=== PATIENT | male | born 1995 | race Caucasian/White ===

== ENCOUNTER → 2023-08-18 | Outpatient (CLI) | payer OTHER ==
--- NOTE | 2023-08-18 19:34 | USB ---
Reason for Exam: Clinical finding. Technique: Method: Targeted. Findings: The lateral section of the breast of the right breast, the axilla of the right breast and the retroareolar of the right breast were scanned. No solid or cystic masses are identified. There is some dense parenchymal tissue within the right breast. Overall Assessment: Probably benign, BI-RAD 3 Management: Diagnostic Mammogram of the right breast in 6 months. Diagnostic Breast Ultrasound of the right breast in 6 months. A clinical breast exam by your physician is recommended on an annual basis and results should be correlated with mammographic findings. This exam should not preclude additional follow-up of suspicious palpable abnormalities. Results were given to the patient verbally at the time of exam. Electronically signed and approved by: Sebas Bird D.O. Radiologis
--- NOTE | 2023-08-18 19:35 | MM ---
Reason for Exam: Clinical finding. Last mammogram was performed 5 year(s) and 10 month(s) ago. Indicated Problems: Lump or thickening of the right side for 6 Year(s). Prior Study Comparison: 09/25/2017 Bilateral Diagnostic Mammogram, [facility]. 09/25/2017 Right Diagnostic Ultrasound, [facility]. Tissue Density: The breast tissue is heterogeneously dense. This may lower the sensitivity of mammography. Findings: Analyzed By CAD. Pattern is asymmetric with greater parenchymal tissue density on the right compared to the left. No discrete mammographic abnormality evident. Pattern is not typical for gynecomastia. No suspicious groups of microcalcifications, spiculated or lobular masses, architectural distortion or other secondary signs of malignancy are mammographically apparent. Overall Assessment: Incomplete: need additional imaging evaluation, BI-RAD 0 Management: Diagnostic Breast Ultrasound of the right breast. A negative mammogram report should not preclude additional follow up of suspicious palpable abnormalities. Patient should continue monthly self breast exam. A clinical breast exam by your physician is recommended on an annual basis and results should be correlated with mammographic findings. Electronically signed and approved by: Sebas Bird D.O. Radiologis
== END | disposition home or self-care (01) ==
LOC: RADMAMWWP 08:47
PROVIDERS: ATTEND Family Medicine
DX: N63.10 Unspecified lump in the right breast, unspecified quadrant (principal)
CPT/HCPCS: 77062; 77066

== ENCOUNTER → 2023-09-24 | Outpatient (CLI) | payer OTHER ==
[2023-09-24 09:28] VITALS: BP 139/85; PULSE 94; RESP 17; TEMP 98.7
--- NOTE | 2023-09-24 10:09 | P.GSHP ---
History of Present Illness H&P Date: 09/24/23 Chief Complaint: right breast enlargement Kayden is a 28 year old white male seen in consultation for Dr. Pascal regarding enlargement of the right breast. He had right breast ultrasound on 08-18-23 which did not show any discrete lesions of concern. A bilateral mammogr am on the same date revealed greater breast parenchyma on the right than the left but the pattern was not typical for gynecomastia. He had had a bilateral mammogram in 2018 which showed findings most likely consistent with gynecomastia. Since 2018 the area of concern in the right breast has increased in size and is painful when he gets bumped, at times there is a constant aching sensation in the breast. He has some mild enlargement of the left breast but is not complaining of pain in the left breast. He is not complaining of any testicular lumps masses or nodules of concern. Caffeine: 1 liter of Mountain Dew/daily nicotine: Patient does not smoke and is not exposed to secondhand smoke Chocolate: occasional drugs: none Family History: maternal grandmother: Fibrocystic breast, no cancer paternal grandmother: ? breast cancer Surgical history: umbilical and left grain hernia repair Medical History: none "water" on the brain related to an allergic reaction to tetanus shot Social History: Nicotine: Negative Alcohol: Rare Drugs: Negative - Constitutional Constitutional: Denies chills, Denies fever - EENT Eyes: denies blurred vision, denies pain Ears, nose, mouth and throat: Denies headache, Denies sore throat - Breasts Breasts: bilateral: as per HPI - Cardiovascular Cardiovascular: Denies chest pain, Denies shortness of breath - Respiratory Respiratory: Denies cough, Denies 7 - Gastrointestinal Gastrointestinal: Denies abdominal pain, Denies diarrhea, Denies nausea, Denies vomiting - Genitourinary (Male) Genitourinary: Denies dysuria, Denies hematuria - Musculoskeletal Musculoskeletal: Denies myalgias - Integumentary Integumentary: Denies pruritus, Denies rash - Neurological Neurological: Denies numbness, Denies weakness - Psychiatric Psychiatric: Reports anxiety, Denies depression - Endocrine Endocrine: Denies fatigue, Denies weight change - Hematologic/Lymphatic Comment: none - Allergic/Immunologic Allergic/Immunologic: Reports seasonal allergies Past Medical History Past Medical History: GERD/Reflux Additional Past Medical History / Comment(s): PAST HX OF ASTHMA., TETANUS VACCINE CAUSED WATER ON BRAIN A CHILD. , UMBILICAL HERNIA., CURRENTLY HAS "SORETHROAT AND COUGH -HE WILL NOTIFY DR DOBBINS. History of Any Multi-Drug Resistant Organisms: None Reported Past Surgical History: Hernia Repair, Orthopedic Surgery Additional Past Surgical History / Comment(s): RIGHT WRIST, LEFT ING HERNIA (1-2-15). Past Anesthesia/Blood Transfusion Reactions: Family History of Problems w/ Anesthesia, Postoperative Nausea & Vomiting (PONV) Additional Past Anesthesia/Blood Transfusion Reaction / Comment(s): PTS MOTHER HAS PONV Past Psychological History: Anxiety Smoking Status: Never smoker Past Alcohol Use History: Rare Additional Past Alcohol Use History / Comment(s): 1-2 DRINKS PER WEEK. Past Drug Use History: None Reported - Past Family History Mother Family Medical History: Cancer Medications and Allergies Home Medications Medication Instructions Recorded Confirmed Type Ibuprofen [Motrin] 200 - 400 mg PO DIRECTED PRN 05/22/15 09/24/23 History Prevacid Otc 1 tab PO DIRECTED PRN 05/22/15 09/24/23 History Multivitamin [Multivitamins Adult 1 tab PO DAILY 09/24/23 09/24/23 History Gummies] Allergies Allergy/AdvReac Type Severity Reaction Status Date / Time Tetanus Vaccines and Toxoid Allergy Unknown Verified 09/24/23 09:19 [Tetanus Vaccines & Toxoid] Childhood Surgical - Exam Vital Signs Temp Pulse Resp BP Pulse Ox 98.7 F 94 17 139/85 98 09/24/23 09:19 09/24/23 09:19 09/24/23 09:19 09/24/23 09:19 09/24/23 09:19 - General no distress - Eyes normal ocular movement - Neck trachea midline - Respiratory normal respiratory effort, clear to auscultation - Cardiovascular Rhythm: regular Heart Sounds: normal: S1, S2 - Abdomen Abdomen: soft, non tender, no guarding, no rigid, no rebound - Genitourinary No testicular masses noted on examination - Integumentary normal turgor - Neurologic no disoriented, no combative - Musculoskeletal normal gait - Psychiatric oriented to time, oriented to person, oriented to place, speech is normal, memory intact Breast Exam: Inspection: Marked asymmetry of the breast with the right being larger than the left Palpation: Right breast multi-positional exam no discrete dominant masses or nodules of concern for fibrocystic changes throughout Right axilla: No adenopathy of concern Left breast: Multi-positional exam no discrete dominant masses or nodules of concern Left axilla: No adenopathy of concern Results Mammogram and ultrasound personally reviewed Assessment and Plan Assessment: Impression: Marked asymmetry of the breast with the right larger than the left and sy mptomatic Plan: Appointment with plastic surgery to consider reduction of the right breast secondary to pain and asymmetry Follow-up here in 1 month CC: Dr. Gonzales
== END ==
LOC: WWCWWP 08:40
PROVIDERS: ATTEND Surgery
DX: N64.89 Other specified disorders of breast (principal); J45.909 Unspecified asthma, uncomplicated; K21.9 Gastro-esophageal reflux disease without esophagitis; Z80.3 Family history of malignant neoplasm of breast; Z88.7 Allergy status to serum and vaccine; Z87.19 Personal history of other diseases of the digestive system; F41.9 Anxiety disorder, unspecified